=== PATIENT | female | born 1960 | race Caucasian/White ===

== ENCOUNTER 2019-08-14 07:50 | Emergency (ER) | payer BC, OTHER ==
[~2019-08-14] VITALS: Ht 157.5 cm; Wt 70.3 kg
[~2019-08-14 07:50] MED LIST: CHANTIX1 MG PO; NOHOMEMEDICATIONS
[2019-08-14 08:32] LABS: HEMATOCRIT 45.6 % (37.0-47.0); HEMOGLOBIN 15.1 gm/dL (12.0-15.0); MCH 29.3 pg (26.0-34.0); MCV 88.8 fL (80.0-100.0); RBC 5.13 mil/uL (4.20-5.00); WBC 8.3 thou/uL (4.0-11.0)
[2019-08-14 08:47] LABS: ANION GAP 9 mmol/L (7-16); BUN 17 mg/dL (7-18); CHLORIDE 103 mmol/L (98-107); CO2 27 mmol/L (21-32); CREATININE 1.2 mg/dL (0.6-1.0); GLUCOSE 146 mg/dL (74-106); SODIUM 139 mmol/L (136-145)
[2019-08-14 08:57] LABS: ALBUMIN 4.2 g/dL (3.4-5.0); LIPASE 194 U/L (73-393); SGOT 23 U/L (15-37); SGPT 31 U/L (30-65); TOTAL BILIRUBIN 0.4 mg/dL (<0.1-1.0); TOTAL PROTEIN 8.2 g/dL (6.4-8.2); TROPONIN-I <0.06 ng/mL (<0.06)
--- NOTE | 2019-08-14 09:04 | EKG ---
[facility] [place] [address] ELECTROCARDIOGRAM REPORT Name: ROSI PENNY Room #: PRE M.R.#: [id number] Admission: Attend Phys: Discharge: Date of : 56 Report #: [id number] THIS REPORT FOR: cc: FAM - Family physician unknown FAM - Family physician unknown Tavo Wilkins MD ~ THIS REPORT FOR: //name// [facility] ED Test Date: 2019-08-14 Test Time: 08:46:14 Pat Name: ROSI PENNY Department: Room: Gender: F [employer] Supervisor: chema : 1960 Requested By: Catarina Munoz Order Number: [id number] MD: Tavo Wilkins Measurements Intervals [place] Rate: 92 P: 61 RI: 177 QRS: 58 QRSD: 99 T: 43 QT: 373 QTc: 462 Interpretive Statements Sinus rhythm Early transition Nonspecific ST-T wave changes Compared to ECG 01/17/2010 09:51:29 No significant changes Electronically Signed On 08-14-2019 9:03:35 [employer] by Tavo Wilkins [email or web address] <ELECTRONICALLY SIGNED> By: Tavo Wilkins MD 08/14/19902 5 5 Tavo Wilkins MD /[place]
[2019-08-14 09:30] LABS: URINE BILIRUBIN NEGATIVE (Negative); URINE BLOOD TRACE (Negative); URINE CLARITY CLEAR; URINE COLOR YELLOW; URINE GLUCOSE-RANDOM* NEGATIVE (Negative); URINE KETONES NEGATIVE (Negative); URINE LEUKOCYTES-REFLEX NEGATIVE (Negative); URINE NITRITE-REFLEX NEGATIVE (Negative); URINE PROTEIN (DIPSTICK) 1+ (Negative); URINE UROBILINOGEN 0.2 E.U./dl (0.2-1.0)
[2019-08-14 10:01] LABS: HYALINE CASTS 0-3 Few /LPF (None Seen); MUCUS >6 Heavy strn/LPF (None Seen); SQUAMOUS 4-10 Moderate /LPF (0-3)
[2019-08-14 10:02] LABS: BACTERIA-REFLEX 1-9 Few /HPF (None Seen); CRYSTALS None Seen /LPF (None Seen); URINE RBC 0-2 Rare /HPF (0-2); URINE WBC-REFLEX 0-5 Rare /HPF (0-5)
[2019-08-14] MEDS ORDERED: ZOFRAN4 MG PO (10:21)
[2019-08-14 10:28] VITALS: BP 119/72
== END 2019-08-14 10:39 | disposition home or self-care (01) ==
LOC: ER 07:50
PROVIDERS: Student in an Organized Health Care Education/Training Program
DX: R19.7 Diarrhea, unspecified (principal); R11.2 Nausea with vomiting, unspecified; Z90.49 Acquired absence of other specified parts of digestive tract